=== PATIENT | female | born 1970 | race Two or more races ===

== ENCOUNTER → 2019-01-27 | Outpatient (CLI) | payer OTHER | END | disposition home or self-care (01) | LOC: PRENATAL 15:30 | DX: O34.42 Maternal care for other abnormalities of cervix, second trimester (principal); O09.522 Supervision of elderly multigravida, second trimester; O35.3XX0 Maternal care for (suspected) damage to fetus from viral disease in mother, not applicable or unspecified; O09.292 Supervision of pregnancy with other poor reproductive or obstetric history, second trimester; Z36.0 Encounter for antenatal screening for chromosomal anomalies ==

== ENCOUNTER → 2019-04-14 | Outpatient (CLI) | payer OTHER | END | disposition home or self-care (01) | LOC: PRENATAL 09:00 | DX: O26.843 Uterine size-date discrepancy, third trimester (principal); Z34.82 Encounter for supervision of other normal pregnancy, second trimester ==